=== PATIENT | female | born 1985 | race African-American/Black ===

== ENCOUNTER 2020-04-27 04:07 | Emergency (ER) | payer MEDICAID ==
[~2020-04-27] VITALS: Ht 160 cm; Wt 102.3 kg
[~2020-04-27 04:07] MED LIST: VALTREX500 MG
[2020-04-27 04:10] VITALS: Ht 160 cm; Wt 102.3 kg
[2020-04-27] MEDS ORDERED: ADDERALL 5 MG TA5 M1 PO (04:12)
[2020-04-27] MEDS ORDERED: LOSARTAN-HCTZ1 EAC1 PO (04:12)
[2020-04-27 05:11] LABS: BASOPHILS 0.2 % (0-2); EOSINOPHILS 1.1 % (0-7); HEMATOCRIT 40.7 % (36.0-48.0); HEMOGLOBIN 14.7 g/dL (12-16); IMMATURE GRANULOCYTES 0.2 % (0-5); LYMPHOCYTE ABS# 2.39 10x3/uL (1.18-3.74); LYMPHOCYTES 42.1 % (15-50); MCH 29.9 pg (26.0-34.0); MCHC 36.1 g/dL (31.0-37.0); MCV 82.9 fL (80.0-100.0); MEAN PLATELET VOLUME 9.7 fL (7.4-10.4); NEUTROPHILS 47.4 % (40-80); RBC 4.91 10x6/uL (4.00-5.40); RDW 13.1 % (11.5-14.5); WBC 5.7 10x3/uL (4.8-10.8)
[2020-04-27 05:17] LABS: PLATELET COUNT 251 10x3/uL (130-400)
[2020-04-27 05:26] LABS: ANION GAP 9.1 mmol/L (8-16); CALCIUM 9.2 mg/dL (8.5-10.1); CARBON DIOXIDE 32.1 mmol/L (21.0-32.0); POTASSIUM - SERUM 3.2 mmol/L (3.5-5.1)
[2020-04-27 05:40] LABS: ALBUMIN 3.9 g/dL (3.4-5.0); BILIRUBIN - TOTAL 0.65 mg/dL (0.2-1.3); THYROID STIMULATING HORMONE 3.12 uIU/mL (0.36-3.74)
[2020-04-27 05:46] LABS: UDS - AMPHET NEGATIVE QUAL (NEGATIVE); UDS - BARB NEGATIVE QUAL (NEGATIVE); UDS - BENZO NEGATIVE QUAL (NEGATIVE); UDS - COCAINE NEGATIVE QUAL (NEGATIVE); UDS - OPIATE NEGATIVE QUAL (NEGATIVE); UDS - PCP NEGATIVE QUAL (NEGATIVE); UDS - THC NEGATIVE QUAL (NEGATIVE)
[2020-04-27 06:10] LABS: HCG URINE NEGATIVE (NEGATIVE)
[2020-04-27 06:14] LABS: BILIRUBIN NEGATIVE (NEGATIVE); KETONE NEGATIVE (NEGATIVE); NITRITE NEGATIVE (NEGATIVE); UROBILINOGEN NORMAL mg/dL (< 2)
[2020-04-27 06:17] LABS: WHITE CELLS - URINE 0-5 HPF (0-4)
[2020-04-27 06:18] LABS: BACTERIA MODERATE HPF (NONE SEEN); SQUAMOUS EPITHELIAL 0-5 HPF (0-4)
[2020-04-27 06:33] VITALS: BP 115/65
== END 2020-04-27 06:33 | disposition home or self-care (01) ==
LOC: D.ER 04:07
PROVIDERS: Family Medicine
DX: R55 Syncope and collapse (principal); S09.90XA Unspecified injury of head, initial encounter; I10 Essential (primary) hypertension; Z72.0 Tobacco use; X58.XXXA Exposure to other specified factors, initial encounter